=== PATIENT | female | born 1950 | race Caucasian/White ===

== ENCOUNTER 2019-12-16 08:57 | Outpatient (CLI) | payer MEDICARE, SELFPAY ==
--- NOTE | ~2019-12-16 | MM_ITS ---
EXAMINATION: MM screening [facility] BI w praveen HISTORY: Screening mammogram TECHNIQUE: Craniocaudal and mediolateral oblique 3-D tomosynthesis images were obtained and synthetic 2-D images were generated. CAD analysis was submitted and interpreted. COMPARISON: Comparison to multiple prior studies sequentially, with oldest reviewed study dated 05/08. BREAST PARENCHYMAL COMPOSITION: There are scattered areas of fibroglandular density. FINDINGS: There is no evidence of suspicious mass, calcification, or architectural distortion to sugg est malignancy in either breast. There has been no suspicious interval change. IMPRESSION: 1. No mammographic evidence of malignancy. 2. Recommend routine screening mammography in one year. BI-RADS Category 1: Negative Reviewed, dictated and finalized at location A.
== END 2019-12-16 08:58 | disposition home or self-care (01) ==
LOC: ANHIMG 09:01
PROVIDERS: PCP Nurse Practitioner Adult Health; Visit Provider Nurse Practitioner Adult Health
DX: Z12.31 Encounter for screening mammogram for malignant neoplasm of breast (principal)
CPT/HCPCS: 77063; 77067

== ENCOUNTER 2019-12-19 01:23 | Outpatient (CLI) | payer MEDICARE, SELFPAY ==
[2019-12-19 16:42] LABS: SARS-CoV-2 RNA PCR Negative
== END 2019-12-19 01:24 | disposition home or self-care (01) ==
LOC: ANHCOVIDDT 01:23
PROVIDERS: PCP Nurse Practitioner Adult Health; Visit Provider Internal Medicine Gastroenterology
DX: Z01.812 Encounter for preprocedural laboratory examination (principal); Z20.828 Contact with and (suspected) exposure to other viral communicable diseases
CPT/HCPCS: 87635; C9803; U0003

== ENCOUNTER 2019-12-22 00:26 | Day surgery (SDC) | payer MEDICARE, SELFPAY ==
[2019-12-17 12:43] VITALS: BMI 31.4
[2019-12-22 09:07] VITALS: BP 148/78; RESP 18; TEMP 36.6; O2SAT 97
--- NOTE | 2019-12-22 09:18 | WPDANESEPPF ---
Anes - Initial Pre Proc Eval Procedure: Operation Date: 12/22/19 10:00 Proposed Procedures p Screening Colonoscopy - Santos Luna MD Date/Time: 12/22/19 09:18 Surgeon: Santos Luna MD Pre Op Diagnosis: hx colon polyps Patient Data Age: 69 Gender: F Height: 5 ft 3 in Weight: 78.4 kg Last Vital Signs Temp 36.6 C 12/22/19 09:07 Resp 18 12/22/19 09:07 BP 148/78 H 12/22/19 09:07 Pulse Ox 97 12/22/19 09:07 Allergies Allergy/AdvReac Type Severity Reaction Status Date / Time No Known Allergies Allergy Verified 12/22/19 09:05 Home Medications Medication Instructions Recorded Confirmed Type carbidopa-levodopa 1 tablet PO HS 12/17/19 12/17/19 History celecoxib 100 mg PO BID 12/17/19 12/17/19 History cetirizine [Zyrtec] 5 mg PO DAILY 12/17/19 12/17/19 History chlorthalidone 25 mg PO DAILY 12/17/19 12/17/19 History hydroxychloroquine 200 mg PO BID 12/17/19 12/17/19 History levothyroxine 75 mcg PO DAILY 12/17/19 12/22/19 History omeprazole 20 mg PO DAILY 12/17/19 12/17/19 History potassium gluconate 595 mg PO DAILY 12/17/19 12/17/19 History simvastatin 20 mg PO HS 12/17/19 12/17/19 History tramadol 50 mg PO Q6H PRN 12/17/19 12/17/19 History Patient hx anesthesia problems: none Family hx anesthesia problems: none [facility] Past Medical History Medical History (Updated 12/22/19 @ 09:21 by Maykel Mcclain MD) Hx of supraventricular tachycardia Hypothyroidism RLS (restless legs syndrome) SLE (systemic lupus erythematosus related syndrome) Surgical History Surgical History (Updated 12/22/19 @ 09:21 by Maykel Mcclain MD) H/O cardiac radiofrequency ablation Anes - Eval Final PreProcedure Day of Procedure 12/22/19 09:18 Patient weight: obese Heart: regular rate and rhythm Lungs: clear to auscultation Airway: Mallampati scale class II Neurological: alert and oriented Last oral intake: >/= 8 hours ASA classification: III Emergent: no Anesthetic plan: proceed Anesthesia type and monitoring: general GIVS and standard monitoring Informed Consent: The patient's anesthetic plan and its attendant risks and benefits were discussed with the patient/family/POA. Questions were solicited and answers provided to the satisfaction of the patient/family/POA.
[2019-12-22] MEDS: LACTATED RINGERS 1,000 ML 150 ML IV CONT (09:36)
--- NOTE | 2019-12-22 09:40 | WPDGICN ---
Assessment and Plan Assessment and plan (1) History of colon polyps: Code(s): Z86.010 - Personal history of colonic polyps Status: Acute Assessment and Plan: Large sessile rectal polyp identified in April 2019. Plan is for surveillance exam at this time because of sessile carpet like nature to the previous polyp. Further recommendations will be given after endoscopy. (2) SLE (systemic lupus erythematosus related syndrome): Code(s): M32.9 - Systemic lupus erythematosus, unspecified Status: Acute (3) Hypothyroidism: Code(s): E03.9 - Hypothyroidism, unspecified Status: Acute (4) Hx of supraventricular tachycardia: Code(s): Z86.79 - Personal history of other diseases of the circulatory system Status: Acute GI Consult Note Consult date/time: 12/22/19 09:40 HPI: Ann-Marie Hinds is a 69 year old female Seen in evaluation at the request of nurse practitioner, Tena Olea. patient has a history of a large sessile rectal polyp. This was removed piecemeal fashion in April 2019. Patient presents today for follow-up examination. Her current weight appetite bowel movements are normal. She denies any abdominal pain. She denies any bleeding. Her bowel habits are normal. Family history is noncontributory. Past medical history is significant for SVT, hypothyroidism, SLE, Review of Systems Review of Systems: All systems reviewed & are unremarkable except as noted in HPI and below PMFSH Past Medical History Medical History Hx of supraventricular tachycardia Hypothyroidism RLS (restless legs syndrome) SLE (systemic lupus erythematosus related syndrome) Surgical History Surgical History H/O cardiac radiofrequency ablation Meds Home Medications and Allergies Home Medications Medication Instructions Recorded Confirmed Type carbidopa-levodopa 1 tablet PO HS 12/17/19 12/17/19 History celecoxib 100 mg PO BID 12/17/19 12/17/19 History cetirizine [Zyrtec] 5 mg PO DAILY 12/17/19 12/17/19 History chlorthalidone 25 mg PO DAILY 12/17/19 12/17/19 History hydroxychloroquine 200 mg PO BID 12/17/19 12/17/19 History levothyroxine 75 mcg PO DAILY 12/17/19 12/22/19 History omeprazole 20 mg PO DAILY 12/17/19 12/17/19 History potassium gluconate 595 mg PO DAILY 12/17/19 12/17/19 History simvastatin 20 mg PO HS 12/17/19 12/17/19 History tramadol 50 mg PO Q6H PRN 12/17/19 12/17/19 History Allergies Allergy/AdvReac Type Severity Reaction Status Date / Time No Known Allergies Allergy Verified 12/22/19 09:05 Vital Signs Vital Signs - 24 hr 12/22/19 09:07 Temperature 36.6 C Respiratory Rate 18 Blood Pressure 148/78 H Pulse Oximetry 97 Exam Narrative: Exam Narrative: physical exam reveals patient to be alert. Vital signs are stable. HEENT exam unremarkable. Lungs are clear to auscultation and percussion. Heart is without murmur or extra sounds. Abdominal exam bowel sounds are present soft nontender with no hepatosplenomegaly. Digital external rectal exam unremarkable.
[2019-12-22 10:32] VITALS: BP 124/83; PULSE 84; RESP 19; O2SAT 98
[2019-12-22 10:42] VITALS: BP 154/70; PULSE 70; RESP 21; O2SAT 98
[2019-12-22 10:52] VITALS: BP 152/76; PULSE 69; RESP 16; O2SAT 98
== END 2019-12-22 11:06 | disposition home or self-care (01) ==
PROVIDERS: PCP Nurse Practitioner Adult Health; Visit Provider Internal Medicine Gastroenterology
PROC: 0DJD8ZZ Inspection of Lower Intestinal Tract, Via Natural or Artificial Opening Endoscopic (ICD-10-PCS; CPT 45378; principal; 2019-12-22 10:00)
DX: Z12.11 Encounter for screening for malignant neoplasm of colon (principal); K62.89 Other specified diseases of anus and rectum; Z86.010 Personal history of colon polyps; M32.9 Systemic lupus erythematosus, unspecified; E03.9 Hypothyroidism, unspecified; G25.81 Restless legs syndrome; E66.9 Obesity, unspecified; Z68.30 Body mass index [BMI] 30.0-30.9, adult
CPT/HCPCS: 45388; J2704; J7120